=== PATIENT | female | born 1975 | race Caucasian/White ===

== ENCOUNTER 2023-09-20 08:51 | Day surgery (SDC) | payer OTHER ==
[2023-09-15 11:29] VITALS: BMI 34.3
[~2023-09-20 08:51] MED LIST: LIDOCAINE 1% (10MG/ML) FOR IV START INTRADERMA PRN
[2023-09-20] MEDS: LACTATED RINGERS 1,000 ML IV SCH (09:17)
[2023-09-20 09:43] VITALS: TEMP 98
[2023-09-20] MEDS ORDERED: PROPOFOL 10 MG/ML 20 ML VIAL IV ONE (09:49)
--- NOTE | 2023-09-20 10:13 | P.PCN ---
Date of Procedure: 09/20/23 Procedure(s) Performed: BRIEF HISTORY: Patient is a 46-year-old pleasant white female scheduled for an elective colonoscopy as a part of screening for colon cancer/positive Cologuard. PROCEDURE PERFORMED: Colonoscopy with snare polypectomy. PREOPERATIVE DIAGNOSIS: Screening for colon cancer/positive Cologuard. IV sedation per Anesthesia. PROCEDURE: After informed consent was obtained, the patient, was brought into the endoscopy unit. IV sedation was administered by Anesthesia under continuous monitoring. Digital rectal examination was normal. Initially the Olympus CF-160 flexible video colonoscope was then inserted in the rectum, gradually advanced into the cecum without any difficulty. Careful examination was performed as the scope was gradually being withdrawn. Ileocecal valve and the appendiceal orifice were visualized and appeared normal. Prep was excellent. Mucosa of the cecum, 5 mm and 1.2 cm flat polyp was removed by snare polypectomy. Rest of the ascending colon, transverse colon, descending colon, sigmoid colon, and rectum appeared normal. Katter diffuse diverticulosis. Retroflexion was performed in the rectum and no lesions were seen. The patient tolerated the procedure well. IMPRESSION: 5 mm and 1.2 cm flat cecal polyp s/p snare polypectomy Scattered diffuse diverticulosis RECOMMENDATIONS: Findings of this examination were discussed with the patient as well as the family.. He was advised to follow-up with the biopsy results. If the biopsy reveals adenoma she can have repeat colonoscopy in 3 years.
[2023-09-20 10:40] VITALS: BP 125/67; PULSE 66
[2023-09-20 10:41] VITALS: RESP 98
== END 2023-09-20 10:38 | disposition home or self-care (01) ==
LOC: ORWHC2ENDO 08:51
PROVIDERS: ATTEND Internal Medicine Gastroenterology
DX: K57.30 Diverticulosis of large intestine without perforation or abscess without bleeding (principal); D12.0 Benign neoplasm of cecum; F41.9 Anxiety disorder, unspecified; Z79.82 Long term (current) use of aspirin; Z79.899 Other long term (current) drug therapy; Z88.5 Allergy status to narcotic agent; Z98.890 Other specified postprocedural states
CPT/HCPCS: 81025; 88305; 45385; J2704

== ENCOUNTER → 2024-09-09 | Outpatient (CLI) | payer OTHER ==
--- NOTE | 2024-09-09 08:49 | US ---
EXAMINATION TYPE: US pelvic complete DATE OF EXAM: 09/09/2024 COMPARISON: NONE CLINICAL INDICATION: Female, 48 years old with history of R10.31 RIGHT LOWER QUADRANT PAIN; Right low er quadrant pain x 1 year. Hx breast cancer and abnormal cervical cells. Hx hysterectomy. Currently t aking Tamoxifen. TECHNIQUE: Transabdominal (TA). Transabdominal grayscale sonographic images of the pelvis were acquired. Doppler imaging: Not perform ed. FINDINGS: Date of LMP: N/A EXAM MEASUREMENTS: Uterus: Surgically absent Endometrial Stripe: Surgically absent Right Ovary: Not visualized due to bowel gas. Left Ovary: Not visualized due to bowel gas. 1. Uterus: Surgically absent 2. Endometrium: Surgically absent 3. Right Ovary: Not visualized 4. Left Ovary: Not visualized 5. Bilateral Adnexa: wnl 6. Posterior cul-de-sac: wnl IMPRESSION: No evidence for acute process. Surgically absent uterus. Ovaries not visualized due to ov erlying bowel gas. [facility], , 09/09/2024 8:47 AM
== END | disposition home or self-care (01) ==
LOC: RADUSWWP 08:14
PROVIDERS: ATTEND Family Medicine
DX: R10.31 Right lower quadrant pain (principal); R87.810 Cervical high risk human papillomavirus (HPV) DNA test positive; Z90.710 Acquired absence of both cervix and uterus
CPT/HCPCS: 76856